=== PATIENT | female | born 1955 | race Caucasian/White ===

== ENCOUNTER 2016-11-03 12:15 | Emergency (ER) | payer MEDICAID ==
[~2016-11-03 12:15] MED LIST: Naproxen 550 mg Tab PO ONE
--- NOTE | 2016-11-04 13:48 | RAD ---
PROCEDURE: HISTORY: Trauma COMPARISON: None. FINDINGS: BONES: No acute fracture is present. No bony destructive lesion is seen. JOINTS: The metacarpals and digits are well aligned. SOFT TISSUE: Soft tissue swelling about the lateral malleolus noted No foreign body is seen. OTHER FINDINGS: None. IMPRESSION: Soft tissue swelling. No fracture dislocation.
--- NOTE | 2016-11-04 13:48 | RAD ---
PROCEDURE: Right ankle x-ray HISTORY: Trauma COMPARISON: None TECHNIQUE: Three views FINDINGS: Marked anterolateral ankle level soft tissue swelling especially over the lateral malleolus is present. The ankle mortise is intact. The talar dome is intact. No fracture or dislocation is apparent. IMPRESSION: No fracture or dislocation Lateral perimalleolar (inferior aspect) soft tissue swelling .
== END 2016-11-03 15:30 | disposition home or self-care (01) ==
LOC: C.ER 12:15
DX: S93.401A Sprain of unspecified ligament of right ankle, initial encounter (principal); W10.9XXA Fall (on) (from) unspecified stairs and steps, initial encounter
CPT/HCPCS: 29515; 73610; 73630; 97116; 97161; 99281; G8978; G8979; G8980

== ENCOUNTER 2017-01-02 13:49 | Emergency (ER) | payer MEDICAID ==
[2017-01-02 14:13] VITALS: O2SAT 97
[2017-01-02] MEDS ORDERED: Amoxicillin-Clav 875-125 mg Tab PO STA (14:45)
--- NOTE | 2017-01-02 14:57 | C.PDOC ---
History Of Present Illness 61 yo female come in for evaluation of nasal congestion, sore throat developed for past 3-4 days associated with chills. For past few day, developed frontal headache, mild. Otherwise, pt denies high fever, denies worse headache of life, dizziness, visual changes, focal deficits, earache or discharge, neck pain, CP, SOB, dyspnea, diaphoresis, palpitation, cough, wheezing, abd. pain, N/V/D, back pain, UTi sx. Ambulate to Ed for evaluation, not in any apparent distress. Time Seen by Provider: 01/02/17 14:22 Chief Complaint (Nursing): ENT Problem History Per: Patient History/Exam Limitations: None Onset/Duration Of Symptoms: Days (3-4) Current Symptoms Are (Timing): Still Present Past Medical History Reviewed: Historical Data, Nursing Documentation, Vital Signs Vital Signs: Last Vital Signs Temp 98.9 F 01/02/17 14:11 Pulse 84 01/02/17 14:11 Resp 16 01/02/17 14:11 BP 134/79 01/02/17 14:11 Pulse Ox 97 01/02/17 15:47 - Medical History PMH: Anemia - [facility] Procedures CLOSURE SKIN & SUBCUTANEOUS NEC (12/20/12) REMOV THERAPEUT DEV NEC (12/27/12) TETANUS TOXOID ADMINIST (12/20/12) Family History: States: No Known Family Hx - Social History Hx Tobacco Use: Yes Hx Alcohol Use: No Hx Substance Use: No - Immunization History Hx Tetanus Toxoid Vaccination: No Hx Influenza Vaccination: No Hx Pneumococcal Vaccination: No Review Of Systems Except As Marked, All Systems Reviewed And Found Negative. Constitutional: Positive for: Chills. Negative for: Fever Eyes: Negative for: Vision Change ENT: Positive for: Nose Congestion, Throat Pain (Sore throat ). Negative for: Ear Pain, Ear Discharge Cardiovascular: Negative for: Chest Pain, Palpitations Respiratory: Negative for: Cough, Shortness of Breath, Wheezing Gastrointestinal: Negative for: Nausea, Vomiting, Abdominal Pain, Diarrhea Musculoskeletal: Negative for: Neck Pain, Back Pain Neurological: Positive for: Headache (Mild frontal headache) Physical Exam - Physical Exam Appears: Well, Non-toxic, No Acute Distress Skin: Normal Color, Warm, Dry, No Rash Eye(s): bilateral: PERRL Ear(s): Bilateral: Normal Nose: No Flaring, No Discharge, Other (B/L nasal congestion with mild tenderness B/L paranasal sinuses. no edema, no erythema.) Oral Mucosa: Moist, No Drooling Tongue: Normal Appearing Lips: Normal Appearing Throat: Erythema (mild B/L), No Exudate, No Drooling Neck: Supple Cardiovascular: Rhythm Regular Respiratory: No Decreased Breath Sounds, No Accessory Muscle Use, No Stridor, No Wheezing Gastrointestinal/Abdominal: Soft, No Tenderness, No Distention, No Guarding Extremity: No Pedal Edema Neurological/Psych: Oriented x3, Normal Speech ED Course And Treatment O2 Sat by Pulse Oximetry: 97 (RA) Pulse Ox Interpretation: Normal Progress Note: On re-eval, pt is afebrile, hemodynamicaly stable. Non-toxic. Pt reports, mod improvemnet in sx after ED tx. PulsOEx 97% RA. Neck: (-) meningeal sign. ENT: findings c/w sinusitis. Lungs: CTA B/L, BS equal B/L. ABd : benign. Neurologicaly intact. Influenza (-). Pt advised. ref. to f/u with PMD in 2-3 days for re-eavl. retutn if any new changes. Medical Decision Making Medical Decision Making: PLAN: * Influenza * Augmentin PO * Motrin PO * Prednisone PO Disposition Counseled Patient/Family Regarding: Diagnosis, Need For Followup, Rx Given - Disposition Referrals: Melissa Luis MD [Medical Doctor] - Disposition: HOME/ ROUTINE Disposition Time: 15:18 Condition: STABLE Additional Instructions: Encourage fluids Take medication as prescribed Follow up with PMD in 2-3 days for re-evaluation. return to Ed if any worsening or new changes. Prescriptions: Amoxicillin/Clavulanate [Augmentin 875 MG-125 MG] 1 tab PO BID #14 tab Ibuprofen [Motrin Tab] 400 mg PO Q6 #20 tab Prednisone [Deltasone] 20 mg PO DAILY #3 tablet Instructions: Sinusitis (ED) - Clinical Impression Clinical Impression: Sinusitis - PA / PRINT SUPPORT SPECIALIST / Resident Statement /DO has reviewed & agrees with the documentation as recorded. - Scribe Statement The provider has reviewed the documentation as recorded by the Scribe Sana Oseguera All medical record entries made by the Scribe were at my direction and personally dictated by me. I have reviewed the chart and agree that the record accurately reflects my personal performance of the history, physical exam, medical decision making, and the department course for this patient. I have also personally directed, reviewed, and agree with the discharge instructions and disposition.
[2017-01-02] MEDS ORDERED: Amoxicillin-Clav 875-125 mg Tab PO ONE (15:15)
[2017-01-02 16:14] VITALS: BP 122/69; PULSE 71; RESP 20; TEMP 98.5
== END 2017-01-02 16:05 | disposition home or self-care (01) ==
LOC: C.ER 13:49
DX: J32.9 Chronic sinusitis, unspecified (principal); Z72.0 Tobacco use

== ENCOUNTER 2017-01-09 18:57 | Emergency (ER) | payer MEDICAID ==
[2017-01-09 20:58] LABS: ALBUMIN 3.7 g/dL (3.5-5.0)
[2017-01-09 21:00] LABS: GFR AFRICAN-AMERICAN > 60; GFR NON-AFRICAN AMERICAN 57
[2017-01-09 21:01] LABS: ALB/GLOB RATIO 1.1 (1.0-2.1); ALT/SGPT 30 U/L (9-52); AST/SGOT 18 U/L (14-36); BARBITURATES, UR NEGATIVE (NEGATIVE); BLOOD UREA NITROGEN 11 mg/dL (7-17); LIPASE 111 U/L (23-300)
[2017-01-09 21:02] LABS: BASO # 0.1 K/uL (0.0-0.2); BASO % 0.6 % (0.0-2.0); BENZODIAZEPINES, UR NEGATIVE (NEGATIVE); EOS # 0.2 K/uL (0.0-0.7); EOS % 1.2 % (0.0-4.0); HEMOGLOBIN 13.2 g/dL (11.0-16.0); LYMPH # 2.1 K/uL (1.0-4.3); LYMPH % 14.3 % (20.0-40.0); MEAN CELL VOLUME 83.6 fL (81.0-99.0); MEAN CORPUSCULAR HEMOGLOBIN 27.2 pg (27.0-31.0); MEAN CORPUSCULAR HGB CONC 32.6 g/dL (33.0-37.0); MEAN PLATELET VOLUME 10.1 fL (7.2-11.7); MONO # 1.4 K/uL (0.0-0.8); MONO % 9.8 % (0.0-10.0); NEUT # 10.7 K/uL (1.8-7.0); NEUT % 74.1 % (50.0-75.0); RBC 4.85 Mil/uL (3.80-5.20); RED CELL DISTRIBUTION WIDTH 13.7 % (11.5-14.5); WHITE BLOOD COUNT 14.4 K/uL (4.8-10.8)
[2017-01-09 21:08] LABS: OPIATES, UR NEGATIVE (NEGATIVE)
[2017-01-09 21:09] LABS: PHENCYCLIDINE, UR NEGATIVE (NEGATIVE); SQUAMOUS EPITHIAL 4 /hpf (0-5); URINE BILIRUBIN NEGATIVE (NEGATIVE); URINE BLOOD 1+ (NEGATIVE); URINE CLARITY Clear (Clear); URINE COLOR Yellow (YELLOW); URINE GLUCOSE (UA) NORMAL (Normal); URINE LEUKOCYTE ESTERASE NEG Leu/uL (Negative); URINE NITRATE NEGATIVE (NEGATIVE); URINE PROTEIN NEGATIVE (NEGATIVE); URINE UROBILINOGEN NORMAL mg/dL (0.2-1.0)
[2017-01-09 21:12] LABS: HCG,QUALITATIVE URINE NEGATIVE (NEGATIVE)
--- NOTE | 2017-01-09 21:13 | C.PDOC ---
History Of Present Illness 61 y/o female presents to the ED with complaints of dull achy LLQ pain x1 day. Pain woke her up from sleep at 0400 this morning. Pt recently treated for sinusitis with prednisone and augmentin 01/02, symptoms resolved. She denies fever, chills, vomiting, diarrhea or any other complaints. Time Seen by Provider: 01/09/17 19:58 Chief Complaint (Nursing): Abdominal Pain History Per: Patient History/Exam Limitations: no limitations Onset/Duration Of Symptoms: Hrs Current Symptoms Are (Timing): Still Present Severity: Mild Location Of Pain/Discomfort: LLQ Radiation Of Pain To:: None Quality Of Discomfort: Dull, Aching Associated Symptoms: denies: Fever, Chills, Nausea, Vomiting, Diarrhea Exacerbating Factors: None Alleviating Factors: None Recent travel outside of the [place]: No Past Medical History Reviewed: Historical Data, Nursing Documentation, Vital Signs Vital Signs: Last Vital Signs Temp 99.3 F 01/09/17 19:32 Pulse 75 01/09/17 19:32 Resp 18 01/09/17 19:32 BP 166/91 H 01/09/17 19:32 Pulse Ox 96 01/09/17 21:15 - Medical History PMH: Anemia - [facility] Procedures CLOSURE SKIN & SUBCUTANEOUS NEC (12/20/12) REMOV THERAPEUT DEV NEC (12/27/12) TETANUS TOXOID ADMINIST (12/20/12) Family History: States: Unknown Family Hx - Social History Hx Tobacco Use: Yes Hx Alcohol Use: No Hx Substance Use: No - Immunization History Hx Tetanus Toxoid Vaccination: No Hx Influenza Vaccination: No Hx Pneumococcal Vaccination: No Review Of Systems Except As Marked, All Systems Reviewed And Found Negative. Constitutional: Negative for: Fever, Chills Cardiovascular: Negative for: Chest Pain Respiratory: Negative for: Shortness of Breath Gastrointestinal: Positive for: Abdominal Pain. Negative for: Nausea, Vomiting , Diarrhea Physical Exam - Physical Exam Appears: Non-toxic, No Acute Distress Skin: Warm, Dry Head: Atraumatic, Normacephalic Chest: Symmetrical Cardiovascular: Rhythm Regular, No Murmur Respiratory: Normal Breath Sounds, No Rales, No Rhonchi, No Wheezing Gastrointestinal/Abdominal: Soft, Tenderness (LLQ tenderness, no epigastric tenderness), No Guarding, No Rebound Extremity: Bilateral: Atraumatic Neurological/Psych: Oriented x3, Normal Speech, Normal Cognition ED Course And Treatment - Laboratory Results Result Diagrams: 01/09/17 20:41 01/09/17 20:41 Lab Interpretation: Abnormal (tox + cocaine) O2 Sat by Pulse Oximetry: 96 (room air) Pulse Ox Interpretation: Normal Progress Note: ivf, zofran, toradol, morphine, cipro, flagyl Reevaluation Time: 23:16 Reassessment Condition: Improved Medical Decision Making Medical Decision Making: early sigmoid diverticulitis- appropriate for outpatient tx. cocaine abuse Disposition Doctor Will See Patient In The: Office Counseled Patient/Family Regarding: Studies Performed, Diagnosis - Disposition Referrals: Non [facility] Provider, [Primary Care Provider] - Disposition: HOME/ ROUTINE Disposition Time: 23:17 Condition: GOOD - Clinical Impression Clinical Impression: Abdominal pain - Scribe Statement The provider has reviewed the documentation as recorded by the Gloria Escobedo Provider Attestation: All medical record entries made by the Gloria were at my direction and personally dictated by me. I have reviewed the chart and agree that the record accurately reflects my personal performance of the history, physical exam, medical decision making, and the department course for this patient. I have also personally directed, reviewed, and agree with the discharge instructions and disposition.
[2017-01-09] MEDS ORDERED: Iohexol 350mg/ml 100 ML ONE (21:21)
--- NOTE | 2017-01-09 22:48 | CT ---
EXAM: CT Abdomen and Pelvis With Intravenous Contrast CLINICAL HISTORY: 61 years old, female; Pain; Abdominal pain; Other: Llq pain; Additional info: Llq x 1 day, ? diverticulitis vs l renal stone TECHNIQUE: Axial computed tomography images of the abdomen and pelvis with intravenous contrast. This CT exam was performed using one or more of the following dose reduction techniques: automated exposure control, adjustment of the mA and/or kV according to patient size, and/or use of iterative reconstruction technique. Coronal and sagittal reformatted images were created and reviewed. CONTRAST: 100 mL of omni administered intravenously. EXAM DATE/TIME: 01/09/2017 8:07 PM COMPARISON: There are no prior studies for comparison. FINDINGS: Lower thorax: Heart size is normal. There is a small hiatal hernia. There is minimal airspace disease at the lung bases. ABDOMEN: Liver: There is fatty infiltration of the liver. Gallbladder and bile ducts: unremarkable Pancreas: unremarkable Spleen: unremarkable Adrenals: unremarkable Kidneys and ureters: unremarkable Stomach and bowel: Stomach is distended with ingested material. Rotation is normal. Small bowel is mildly distended with fluid and air. There is no obstruction. Terminal ileum is unremarkable.Appendix is unremarkable.Colon is incompletely distended which limits evaluation. There is scattered diverticulosis. There is minimal inflammation of about a proximal sigmoid diverticulum, image 58 series 601, image 115 series 3. Appendix: See stomach and bowel PELVIS: Bladder: Urinary bladder is partially distended. Reproductive: Uterus and adnexal structures are unremarkable. ABDOMEN and PELVIS: Intraperitoneal space: There is no significant fluid. There is no free air. Bones/joints: There are degenerative changes in the osseus structures.. Soft tissues: unremarkable Vasculature: There are calcified phleboliths. There are vascular calcifications. Lymph nodes: There is no pathologic adenopathy. IMPRESSION: Early sigmoid diverticulitis; no acute solid visceral abnormality; no renal or ureteral stones or hydronephrosis Additional findings as described above.
[2017-01-09 23:36] VITALS: BP 158/70; PULSE 72; RESP 20; TEMP 98.2; O2SAT 97
== END 2017-01-09 23:35 | disposition home or self-care (01) ==
LOC: SUPCPDRO 18:57 → C.ER 18:57
DX: R10.9 Unspecified abdominal pain (principal)
CPT/HCPCS: 74177; 80053; 80324; 80345; 80346; 80349; 80353; 80358; 80361; 81001; 83690; 83992; 84703; 85025; 96374; 99284; J1885; Q9967